=== PATIENT | female | born 1965 | race Hispanic/Latino ===

== ENCOUNTER 2016-12-10 22:40 | Emergency (ER) | payer OTHER ==
[2016-12-10 22:40] VITALS: BMI 31.3
[2016-12-10 22:45] VITALS: BP 165/97; PULSE 86; TEMP 98.4; O2SAT 97
--- NOTE | 2016-12-10 23:02 | C.PDOC ---
History Of Present Illness The patient reports that she slipped on a wet floor at a restaurant 2 days ago. Patient now complains of pain to the right knee and lower leg which is worsened with walking. The patient reports that she is able to ambulate but with pain. Denies, numbness, weakness, or other injuries. Time Seen by Provider: 12/10/16 22:56 Chief Complaint (Nursing): Lower Extremity Problem/Injury History Per: Patient History/Exam Limitations: no limitations Onset/Duration Of Symptoms: Hrs (2 days) Current Symptoms Are (Timing): Still Present Recent travel outside of the [place]: No - Knee Description Of Injury: Fell Past Medical History Reviewed: Historical Data, Nursing Documentation, Vital Signs Vital Signs: Last Vital Signs Temp 98.4 F 12/10/16 22:43 Pulse 86 12/10/16 22:43 Resp 20 12/11/16 00:39 BP 165/97 H 12/10/16 22:43 Pulse Ox 97 12/11/16 05:55 - Medical History PMH: Hypothyroidism, Rheumatoid Arthritis Family History: States: Unknown Family Hx - Social History Hx Tobacco Use: No Hx Alcohol Use: No Hx Substance Use: No - Immunization History Hx Tetanus Toxoid Vaccination: No Hx Influenza Vaccination: No Hx Pneumococcal Vaccination: No Review Of Systems Constitutional: Negative for: Fever, Chills Cardiovascular: Negative for: Chest Pain Gastrointestinal: Negative for: Nausea, Vomiting Musculoskeletal: Positive for: Leg Pain (right knee and lower leg pain) Neurological: Negative for: Weakness, Numbness Physical Exam - Physical Exam Appears: Non-toxic, No Acute Distress Skin: Warm, Dry Head: Atraumatic, Normacephalic Eye(s): bilateral: Normal Inspection Neck: Supple Chest: Symmetrical, No Deformity Cardiovascular: Rhythm Regular, No Murmur Extremity: Normal ROM (full ROM of right knee and ankle ), Tenderness (mild tenderness to anterior right knee), No Pedal Edema, No Calf Tenderness, Capillary Refill (good capillary refill, less than two seconds ), No Deformity, Swelling (mild swelling to anterior right knee ) Neurological/Psych: Oriented x3 ED Course And Treatment O2 Sat by Pulse Oximetry: 97 (room air ) - Other Rad Right Tibula Fibula X-Ray X-Ray: Interpreted by Me, Viewed By Me Interpretation: No fracture. Right Knee X-ray X-Ray: Interpreted by Me, Viewed By Me Interpretation: No fractures or dislocations. Progress Note: Right knee and tibula fibula X-Rays were ordered. Patient was given motrin. Medical Decision Making Medical Decision Making: On re-exam, the patient reports improvement of symptoms. Knee brace placed on the knee. Ambulatory in the ED with steady gait. Follow up with the medical doctor within 1-2 days. Return if worsened. Disposition - Disposition Referrals: Shivam Barton III, MD [Staff Provider] - Disposition: HOME/ ROUTINE Disposition Time: 00:00 Condition: GOOD Additional Instructions: Follow up with the medical doctor/clinic within 1-2 days. return if worsened. Prescriptions: Naproxen [Naprosyn] 500 mg PO BID #20 tab Instructions: Knee Sprain (ED) Forms: [employer] (Swedish) - Clinical Impression Clinical Impression: Knee contusion - PA / CERTIFIED ATHLETIC TRAINER / Resident Statement MD/DO has reviewed & agrees with the documentation as recorded. - Scribe Statement The provider has reviewed the documentation as recorded by the Scribe Nisa Reyes All medical record entries made by the Scribe were at my direction and personally dictated by me. I have reviewed the chart and agree that the record accurately reflects my personal performance of the history, physical exam, medical decision making, and the department course for this patient. I have also personally directed, reviewed, and agree with the discharge instructions and disposition.
[2016-12-11 00:40] VITALS: RESP 20
--- NOTE | 2016-12-11 09:17 | RAD ---
PROCEDURE: Radiographs of the right tibia and fibula. HISTORY: leg injury COMPARISON: None available. TECHNIQUE: Frontal and lateral views obtained. FINDINGS: BONES: No fracture or destructive lesion. JOINT SPACES: Medial femoral tibial joint space narrowing with medial knee joint line spurring OTHER FINDINGS: None. IMPRESSION: No fracture or dislocation. 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
== END 2016-12-11 00:39 | disposition home or self-care (01) ==
LOC: C.ER 22:40
DX: S80.01XA Contusion of right knee, initial encounter (principal); W01.0XXA Fall on same level from slipping, tripping and stumbling without subsequent striking against object, initial encounter; Y92.511 Restaurant or cafe as the place of occurrence of the external cause